=== PATIENT | female | born 1975 | race Caucasian/White ===

== ENCOUNTER 2022-04-30 10:09 | Emergency (ER) | payer MEDICARE ==
[~2022-04-30] VITALS: Ht 165 cm; Wt 88.0 kg
--- NOTE | 2022-04-30 10:27 | ED Lower Extremity ---
General Chief Complaint: Lower Extremity Stated Complaint: L FOOT PAIN Nursing Triage Note: PT AMB TO [facility] CO OF R ANKLE PAIN, STATES AT 0400 THIS AM, SHE TWISTED R ANKLE ON MISSED STEP, R ANKLE SL SWOLLEN AND PAINFUL RATES PAIN 11/16 Source: patient Exam Limitations: no limitations History of Present Illness Date Seen by Provider: Apr 30, 2022 Time Seen by Provider: 10:19 Initial Comments Patient is a 47-year-old female who presents to the emergency room with a chief complaint of anterior left ankle pain. She was walking up some stairs and states she tripped and twisted her ankle. She believes she inverted her foot. She has lateral as well as anterior ankle pain. She denies any injury to her knee. She is able to bear weight on the left foot/ankle. She has not taken anything for pain. Onset: other (4am) Severity: mild Pain/Injury Location: left ankle Method of Injury: twisted Modifying Factors: Improves With Immobilization Allergies and Home Medications Allergies Coded Allergies: No Known Drug Allergies (Unverified , 04/30/22) Patient Home Medication List Home Medication List Reviewed: Yes Review of Systems Constitutional: see HPI Musculoskeletal: joint pain (left ankle) Past Zxjrgaf-Smoaks-Zktihk Hx Patient Social History Tobacco Use?: No Substance use?: No Alcohol Use?: No Pt feels they are or have been: No Immunizations Up To Date Influenza Vaccine Up-to-Date: Yes; Up-to-Date First/Initial COVID19 Vaccinat: y Second COVID19 Vaccination Eddie: y Third COVID19 Vaccination Date: y Past Medical History Surgery/Hospitalization HX: DENIES Physical Exam Vital Signs Vital Signs - First Documented 04/30/22 10:15 Temp 36.7 Pulse 80 Resp 18 B/P (MAP) 131/84 (100) Pulse Ox 97 Capillary Refill : Less Than 3 Seconds Height, Weight, BMI Height: '" Weight: lbs. oz. kg; 32.00 BMI Method: General Appearance: WD/WN, no apparent distress Cardiovascular: regular rate, rhythm Respiratory: no respiratory distress, no accessory muscle use Hips: bilateral hip non-tender, bilateral hip normal inspection, bilateral hip normal range of motion, bilateral hip no evidence of injury Legs: bilateral leg non-tender, bilateral leg normal inspection, bilateral leg normal range of motion, bilateral leg no evidence of injury Knees: left knee non-tender, left knee normal inspection, left knee normal range of motion, left knee no evidence of injury Ankles: left ankle normal range of motion, left ankle soft tissue tenderness (anterior ankle), left ankle swelling (anterior and lateral malleolar mild swelling) Feet: left foot non-tender, left foot normal inspection, left foot normal range of motion, left foot no evidence of injury Neurologic/Psychiatric: no motor/sensory deficits, alert, normal mood/affect, oriented x 3 Skin: normal color, warm/dry Progress/Results/Core Measures Results/Orders My Orders Orders - SAKINA NGUYEN MD Ibuprofen Tablet (Motrin Tablet) (04/30/22 10:30) Vital Signs/I&O 04/30/22 10:15 Temp 36.7 Pulse 80 Resp 18 B/P (MAP) 131/84 (100) Pulse Ox 97 Blood Pressure Mean: 100 Progress Progress Note : Time: 10:31 Progress Note Patient seen and examined, 47-year-old with left ankle pain status post trip and twisting injury. Evaluation today includes a physical exam. Patient's left ankle is noted to be minimally swollen anteriorly and laterally. No bony tenderness on exam. Distal pulses intact, sensation intact. She is able to bear weight. No associated knee injury, tenderness or range of motion issues. Consideration for x-ray however history and physical exam do not support the need. Differential diagnosis includes foot fracture/ankle fracture. This is not suspected based on history and exam. Patient is evaluated on "RICE" treatment. Provided an ice pack and Tr wrap. Return precautions provided. She verbalized understanding. All questions are sought and answered. Patient is stable for discharge. Departure Impression Primary Impression: Left ankle sprain Qualified Codes: S93.402A - Sprain of unspecified ligament of left ankle, initial encounter Disposition: HOME, SELF-CARE Condition: Stable Departure-Patient Inst. Decision time for Depature: 10:25 Referrals: [facility]1[place] [place]ructions: Ankle Sprain ED Add. Discharge Instructions: When wearing tennis shoes, keep your ankle wrapped for 2 to 3 days with the Tr wrap. You can take [id number] ibuprofen (Advil/Motrin) 3 pills which is 600 mg every 6 hours with food as needed for pain. Use an ice pack 20 minutes at a time 4 or 5 times daily. When you are at rest keep the foot elevated to reduce swelling. Come back to the emergency department for any new, concerning or emergent complaints. SAKINA NGUYEN MD Apr 30, 2022 10:27
[2022-04-30] MEDS ORDERED: IBUPROFEN 600 MG (MOTRIN) TAB PO ONE (10:30)
[2022-04-30 10:34] VITALS: BP 131/84
== END 2022-04-30 10:34 | disposition home or self-care (01) ==
LOC: ER 10:11
DX: S93.402A Sprain of unspecified ligament of left ankle, initial encounter (principal); W18.40XA Slipping, tripping and stumbling without falling, unspecified, initial encounter; X50.1XXA Overexertion from prolonged static or awkward postures, initial encounter; Y93.01 Activity, walking, marching and hiking
CPT/HCPCS: 99283